=== PATIENT | female | born 1970 ===

== ENCOUNTER 2018-11-13 14:10 | Emergency (ER) | payer OTHER ==
[2018-11-13] MEDS ORDERED: Emtricitabine-Tenofovir 200 mg-300 mg Tab PO STA (16:36)
[2018-11-13] MEDS ORDERED: cefTRIAXone (Rocephin) 250 mg Inj IM STA (16:36)
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
[2018-11-13] MEDS ORDERED: cefTRIAXone 250 MG, Lidocaine Hydrochloride 1% 1 ML IM STA (18:05)
[2018-11-13 18:46] VITALS: BP 118/81; PULSE 96; RESP 18; TEMP 98.1; O2SAT 95
[2018-11-14] MEDS ORDERED: Emtricitabine-Tenofovir 200 mg-300 mg Tab PO SCH (10:00)
== END 2018-11-13 19:05 | disposition home or self-care (01) ==
LOC: C.ER 14:10
DX: T74.21XA Adult sexual abuse, confirmed, initial encounter (principal)
CPT/HCPCS: 81025; 86592; 86703; 86706; 96372; 99285; J0696